=== PATIENT | male | born 1970 | race Caucasian/White ===

== ENCOUNTER 2021-08-10 09:52 | Emergency (ER) | payer OTHER ==
[~2021-08-10] VITALS: Ht 177.8 cm; Wt 145.1 kg
[~2021-08-10 09:52] MED LIST: DEPAKOTE ER500 MG; ZANTAC 7575 MG
[2021-08-10] MEDS ORDERED: PRILOSEC OTC20 MG PO (10:07)
[2021-08-10] MEDS ORDERED: LEVOTHYROXINE25 MCG PO (10:08)
== END 2021-08-10 12:17 | disposition home or self-care (01) ==
LOC: ER 09:52
DX: M25.561 Pain in right knee (principal)